=== PATIENT | male | born 1990 | race Hispanic/Latino ===

== ENCOUNTER 2022-04-22 10:26 | Emergency (ER) | payer SELFPAY ==
[~2022-04-22] VITALS: Ht 172.7 cm; Wt 77.1 kg
[2022-04-22 11:27] LABS: BASOPHILS % 0.7 % (0.0-1.0); EOSINOPHILS % 0.2 % (0.0-6.0); HEMATOCRIT 47.6 % (38.2-49.6); HEMOGLOBIN 16.2 g/dL (14.0-18.0); LYMPHOCYTES # (AUTO) 1.5 (1.0-3.2); LYMPHOCYTES % 27.4 % (18.0-39.1); MEAN CORPUSCULAR HEMOGLOBIN 31.8 pg (28-32); MEAN CORPUSCULAR VOLUME 93.5 fL (81-99); MONOCYTES # (AUTO) 1.1 (0.2-0.8); MONOCYTES % 20.4 % (4.4-11.3); NEUTROPHILS # (AUTO) 2.8 (2.1-6.9); NEUTROPHILS % 50.9 % (38.7-80.0); PLATELET COUNT 191 x10e3/uL (140-360); RED BLOOD COUNT 5.09 x10e6/uL (4.3-5.7); RED CELL DISTRIBUTION WIDTH 12.5 % (11.7-14.4)
[2022-04-22] MEDS ORDERED: ACETAMINOPHEN 325 MG TAB PO ONE (11:30)
[2022-04-22 11:44] LABS: CLARITY,URINE CLEAR (CLEAR); COLOR,URINE YELLOW (YELLOW); KETONES,URINE NEGATIVE (NEGATIVE); LEUKOCYTE ESTERASE ,URINE NEGATIVE (NEGATIVE); NITRITE,URINE NEGATIVE (NEGATIVE); PROTEIN,URINE DIPSTICK NEGATIVE (NEGATIVE); URINE UROBILINOGEN 0.2 mg/dL (0.2 - 1)
[2022-04-22 11:54] LABS: CALCIUM 8.6 mg/dL (8.4-10.2); CREATININE, SERUM 0.98 mg/dL (0.72-1.25)
[2022-04-22 11:57] LABS: ALANINE AMINOTRANSFERASE 19 IU/L (0-55); ALBUMIN 3.9 g/dL (3.5-5.0); ALKALINE PHOSPHATASE 62 IU/L (40-150); BILIRUBIN,DIRECT 0.1 mg/dL (0.0-0.5); CREATINE KINASE 142 IU/L (30-200); LIPASE 29 U/L (8-78)
[2022-04-22 12:01] LABS: BACTERIA,URINE RARE /HPF; EPITHELIAL CELLS,URINE RARE /LPF; WBC,URINE (MAN) 0-5 /HPF (0-5)
[2022-04-22] MEDS ORDERED: KETOROLAC TROME10 MG PO (13:23)
== END 2022-04-22 13:33 | disposition home or self-care (01) ==
LOC: ER 10:30
DX: R05.9 Cough, unspecified (principal); U07.1 COVID-19; F90.9 Attention-deficit hyperactivity disorder, unspecified type
CPT/HCPCS: 36415; 71045; 80048; 80076; 81001; 82550; 83690; 84484; 85025; 93005; 99284

== ENCOUNTER 2022-11-25 11:38 | Emergency (ER) | payer SELFPAY ==
[~2022-11-25] VITALS: Ht 172.7 cm; Wt 77.1 kg
[~2022-11-25 11:38] MED LIST: KETOROLAC TROME10 MG PO
[2022-11-25] MEDS ORDERED: TETANUS/DIPHTHERIA TOX ADULT 0.5 ML SYR IM ONE (12:00)
== END 2022-11-25 13:00 | disposition home or self-care (01) ==
LOC: ER 11:56
DX: S90.31XA Contusion of right foot, initial encounter (principal); W20.8XXA Other cause of strike by thrown, projected or falling object, initial encounter; Y92.89 Other specified places as the place of occurrence of the external cause; F90.9 Attention-deficit hyperactivity disorder, unspecified type
CPT/HCPCS: 90714; 99282

== ENCOUNTER 2022-12-13 13:28 | Emergency (ER) | payer SELFPAY ==
[~2022-12-13] VITALS: Ht 172.7 cm; Wt 77.1 kg
[2022-12-13] MEDS ORDERED: MECLIZINE HCL 12.5 MG TAB ONE (14:38)
[2022-12-13] MEDS ORDERED: MECLIZINE HCL 12.5 MG TAB PO ONE (14:45)
[2022-12-13] MEDS ORDERED: MECLIZINE HCL12.5 MG PO (17:28)
== END 2022-12-13 17:54 | disposition home or self-care (01) ==
LOC: ER 14:14
DX: H81.10 Benign paroxysmal vertigo, unspecified ear (principal); F90.9 Attention-deficit hyperactivity disorder, unspecified type; F17.210 Nicotine dependence, cigarettes, uncomplicated
CPT/HCPCS: 99283; J8597

== ENCOUNTER 2023-02-19 13:33 | Emergency (ER) | payer SELFPAY ==
[~2023-02-19] VITALS: Ht 172.7 cm; Wt 84.4 kg
[~2023-02-19 13:33] MED LIST changes: +MECLIZINE HCL12.5 MG PO
[2023-02-19 13:40] VITALS: O2SAT 96
[2023-02-19] MEDS ORDERED: IBUPROFEN200 MG PO (14:10)
[2023-02-19] MEDS ORDERED: TYLENOL325 MG PO (14:10)
[2023-02-19] MEDS ORDERED: CEFDINIR300 MG PO (14:10)
== END 2023-02-19 14:14 | disposition home or self-care (01) ==
LOC: FSED 13:36
DX: R68.84 Jaw pain (principal); H65.92 Unspecified nonsuppurative otitis media, left ear; K02.9 Dental caries, unspecified; F90.9 Attention-deficit hyperactivity disorder, unspecified type; F17.210 Nicotine dependence, cigarettes, uncomplicated
CPT/HCPCS: 99283